=== PATIENT | female | born 1985 | race Two or more races ===

== ENCOUNTER 2023-06-21 01:41 | Emergency (ER) | payer MEDICAID ==
[~2023-06-21] VITALS: Ht 165.1 cm; Wt 73.0 kg
[2023-06-21 02:06] VITALS: BP 123/77; PULSE 98; RESP 18; TEMP 98; O2SAT 98
[2023-06-21] MEDS ORDERED: IBUP-2028 PO (06:07)
[2023-06-21] MEDS ORDERED: CEPH500C2 PO (06:07)
[2023-06-21] MEDS ORDERED: CLIN-194 PO (06:07)
== END 2023-06-21 06:27 | disposition home or self-care (01) ==
LOC: ER 01:41
DX: L03.314 Cellulitis of groin (principal); Z88.2 Allergy status to sulfonamides
CPT/HCPCS: 76705; 99284